=== PATIENT | female | born 1995 | race Caucasian/White ===

== ENCOUNTER 2017-05-13 16:10 | Emergency (ER) | payer OTHER ==
[~2017-05-13] VITALS: Ht 175.3 cm; Wt 86.2 kg
[2017-05-13] MEDS ORDERED: HYDROcodone/APAP 5/325MG 1 TAB TABLET PO ONE (17:00)
[2017-05-13] MEDS ORDERED: HYDR-971 PO (17:07)
[2017-05-13] MEDS ORDERED: METH-37 PO (17:07)
[2017-05-13] MEDS ORDERED: PRED20TA PO (17:07)
[2017-05-13] MEDS ORDERED: NABU500T PO (17:07)
--- NOTE | 2017-05-13 17:07 | PHYS DOC ---
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 She has had low back pain off and on for months or years. She started having pain down her left leg may be in February. It goes down the back of her left leg, down the back of her calf and her big toe is numb. It feels like both pain and numbness. Usually when she wakes up in the morning she can walk it off". It bothered by sitting in class for a while but improved when she gets up and walks around. She takes ibuprofen sometimes for it. She has not seen a doctor or head imaging. She's been bothered increasingly by pain down her left leg. This morning she had been laying on her stomach, she stood up and she had sudden onset of more severe pain that sounds like a muscle spasm. She is supposed to start her clinicals on Monday and she is concerned that she'll have trouble doing that with the pain. The patient has no chronic medical problems other than PCO S. Review of Systems Review of Systems Constitutional: Denies fever or chills [] Neurologic: Denies focal weakness Endocrine: She has PCOS but she is not diabetic Physical Exam Physical Exam Constitutional: Well developed, well nourished, no acute distress, non-toxic appearance. Alert, mentating normally, warm and dry. HENT: Normocephalic, atraumatic, bilateral external ears normal, nose normal. [ ] Eyes: conjunctiva normal, no discharge. [] Neck: Normal range of motion, no stridor. [] Skin: Warm, dry, no erythema, no rash. [] Back: No tenderness, no CVA tenderness. No muscle spasm, no overlying skin abnormality Extremities: No tenderness, no cyanosis, no clubbing, ROM intact, no edema. Bilateral lower extremities with normal strength for leg extension, dorsiflexion and plantar flexion of great toes. She does have pain with extension of her left leg. DTRs 1-2 over 4 and symmetrical bilaterally. Neurologic: Alert and oriented X 3, normal motor function, no focal deficits noted. [] EKG EKG [] Radiology/Procedures Radiology/Procedures [] Course & Med Decision Making Course & Med Decision Making Pertinent Labs and Imaging studies reviewed. (See chart for details) 21-year-old female who has had some chronic back pain and has more recently developed what sounds like a lumbar radiculopathy. I discussed treatment with the patient. I recommended follow-up for possible imaging since this has been going on now since February. We will treat her at this time with prednisone, muscle relaxer. She has been trying ibuprofen so we will try a stronger NSAID. I gave her a limited number of hydrocodone so she can sleep. She was given referral to primary care physicians. See instructions for plan. [] Dragon Disclaimer Dragon Disclaimer This chart was dictated in whole or in part using Voice Recognition software in a busy, high-work load, and often noisy Emergency Department environment. It may contain unintended and wholly unrecognized errors or omissions. Departure Departure: Impression: Primary Impression: Low back pain Additional Impression: Lumbar back pain with radiculopathy affecting left lower extremity Disposition: 01 HOME, SELF-CARE Condition: STABLE Referrals: PCP,NO (PCP) Patient Instructions: Back Pain, Adult, [id number], Lumbosacral Radiculopathy Additional Instructions: As we discussed, the pain down in your left leg suggests radiculopathy, sometimes called "a pinched nerve". The nerve may or may not be actually pinched. Since your leg pain has been going on for several weeks, I do recommend following up for a recheck, you may end up needing to have imaging such as an MRI. Anti-inflammatory pain reliever, nabumetone, as directed. Do not take ibuprofen with this. Muscle relaxer, Robaxin, as directed. This may cause sedation, do not take while driving or going to school or working. Prednisone, anti-inflammatory, as directed for 5 days. Hydrocodone if needed for more severe pain. Hydrocodone is an opiate and like all opiates may be addicting, sedating, and constipating. Do not take while working or driving. Take sparingly as little as possible. You may need this to get some sleep while the pain is more severe. All of the above medicines may be combined if needed. Scripts Methocarbamol (ROBAXIN) 500 Mg Tablet 1 TAB PO BID for back pain, #30 TAB Prov: RONNI COLE MD 05/13/17 Prednisone (PREDNISONE) 20 Mg Tablet 40 MG PO QAm for lumbar radiculopathy for 5 Days, #10 TAB Prov: RONNI COLE MD 05/13/17 Hydrocodone Bit/Acetaminophen (NORCO 5-325 TABLET) 1 Each Tablet 1 TAB PO PRN Q6HRS Y for PAIN, #10 TAB 0 Refills Prov: RONNI COLE MD 05/13/17 Nabumetone (NABUMETONE) 500 Mg Tablet 1 TAB PO BID for back pain, #30 TAB Prov: RONNI COLE MD 05/13/17 Problem Qualifiers RONNI COLE MD May 13, 2017 17:07
[2017-05-13 17:15] VITALS: BP 121/77
== END 2017-05-13 17:15 | disposition home or self-care (01) ==
LOC: ER 16:10
DX: M54.16 Radiculopathy, lumbar region (principal); M79.662 Pain in left lower leg
CPT/HCPCS: 99283